=== PATIENT | female | born 1980 | race American Indian/Alaskan Native ===

== ENCOUNTER 2021-05-14 18:22 | Emergency (ER) | payer SELFPAY | END 2021-05-14 23:00 | LOC: ED 18:22 | DX: O46.90 Antepartum hemorrhage, unspecified, unspecified trimester (principal); Z53.21 Procedure and treatment not carried out due to patient leaving prior to being seen by health care provider ==

== ENCOUNTER 2021-05-15 16:35 | Emergency (ER) | payer SELFPAY ==
[2021-05-15 18:39] LABS: Basophils % (Auto) 0.2 % (0.0-1.8); Eosinophils # (Auto) 0.1 K/mm3 (0.0-0.4); Eosinophils % (Auto) 0.9 % (0.0-4.3); Hemoglobin 12.1 gm/dl (10.1-14.3); Lymphocytes # (Auto) 2.6 K/mm3 (1.2-5.4); Lymphocytes % (Auto) 30.3 % (13.4-35.0); Mean Corpuscular HGB Conc 31 % (30-34); Mean Corpuscular Volume 86 fl (79-97); Monocytes # (Auto) 0.4 K/mm3 (0.0-0.8); Monocytes % (Auto) 5.2 % (0.0-7.3); Platelet Count 413 K/mm3 (140-440); Red Blood Count 4.53 M/mm3 (3.65-5.03); Red Cell Distribution Width 15.1 % (13.2-15.2)
[2021-05-15 20:08] LABS: Bilirubin,Urine NEG (Negative); Blood,Urine LG (Negative); Color,Urine Red (Yellow); Mucus,Urine FEW /HPF; Urobilinogen,Urine < 2.0 mg/dL (<2.0)
[2021-05-15 20:10] LABS: RBC,Urine > 182.0 /HPF (0.0-6.0)
--- NOTE | 2021-05-15 22:52 | Emergency Department Report ---
HPI - General Chief Complaint: Vaginal Bleeding Time Seen by Provider: 05/15/21 22:38 - HPI HPI: MSE 5 The patient is a 41-year-old female present with a chief complaint of vaginal bleeding. The patient states she is approximately 10 weeks with an LMP 03/09/2021. Patient states she has not yet seen an [facility] or had an ultrasound for this . Patient states she developed vaginal spotting 6 days ago. The patient states she came to the ED yesterday but left before she was evaluated. The patient states she decided to give her self but rest when she woke up today she notes she is bleeding heavier. Patient denies passage of tissue but states she has passed small clots and she has gone through approximately 6 pads today. Patient admits to nausea but denies vomiting. Patient denies dysuria or fever ED Past Medical Hx - Past Medical History Hx Sickle Cell Disease: Yes (sickle cell trait) Additional medical history: anemia, sickle cell trait,BLOOD TRANSFUSION Feb 2014 - Surgical History Additional Surgical History: c section,D&C Feb - Family History Family history: no significant - Social History Smoking Status: Never Smoker Substance Use Type: None (Denies illicit drug), Alcohol (Occasional) - Medications Home Medications: Home Medications Medication Instructions Recorded Confirmed Last Taken Type HYDROcodone/APAP 5-325 [[place] 1 each PO Q6HR PRN #20 tablet 03/26/14 Unknown Rx 5/325] Ibuprofen [Motrin] 800 mg PO TID PRN #30 tablet 03/26/14 Unknown Rx Promethazine [Phenergan] 25 mg PO Q6H PRN #30 tablet 03/26/14 Unknown Rx Nitrofurantoin [place]/M-Cryst 100 mg PO Q12HR #14 capsule 05/15/21 Unknown Rx [Macrobid CAP] ED Review of Systems ROS: Stated complaint: POSS. MISCARRIAGE Other details as noted in HPI Constitutional: denies: fever Eyes: denies: eye pain ENT: denies: throat pain Respiratory: no symptoms reported Cardiovascular: denies: chest pain Endocrine: no symptoms reported Gastrointestinal: abdominal pain, nausea. denies: vomiting Genitourinary: abnormal menses. denies: dysuria Musculoskeletal: denies: back pain Neurological: denies: headache Physical Exam - Physical Exam Vital Signs: Vital Signs 05/15/21 17:47 Temperature 98 F Pulse Rate 85 Respiratory 20 Rate Blood Pressure 169/81 [Right] O2 Sat by Pulse 98 Oximetry Physical Exam: GENERAL: The patient is well-developed well-nourished female lying on stretcher not appearing to be in acute. [] HEENT: Normocephalic. Atraumatic. Extraocular motions are intact. Patient has moist mucous membranes. NECK: Supple. Trachea midline CHEST/LUNGS: Clear to auscultation. There is no respiratory distress noted. HEART/CARDIOVASCULAR: Regular. There is no tachycardia. There is no gallop rub or murmur. ABDOMEN: Abdomen is soft, nontender. Patient has normal bowel sounds. There is no abdominal distention. SKIN: There is no rash. There is no edema. There is no diaphoresis. NEURO: The patient is awake, alert, and oriented. The patient is cooperative. The patient has no focal neurologic deficits. The patient has normal speech. GCS MUSCULOSKELETAL: There is no evidence of acute injury. ED Course Vital Signs 05/15/21 17:47 Temperature 98 F Pulse Rate 85 Respiratory 20 Rate Blood Pressure 169/81 [Right] O2 Sat by Pulse 98 Oximetry ED Medical Decision Making - Lab Data Result diagrams: 05/15/21 18:05 - Radiology Data Radiology results: report reviewed (Pelvic ultrasound), image reviewed (Pelvic ultrasound) [facility] [address] [place] [address] Ultrasound Report Signed Patient: OLGA MACKEY MR#: [id number] : 1980 Acct:[id number] Age/Sex: 41 / F ADM Date: 05/15/21 Loc: ED Attending Dr: Ordering Physician: HUMBERTO GONZALEZ MD Date of Service: 05/15/21 Procedure(s): US OB <= 14 weeks fetus Accession Number(s): [id number] cc: HUMBERTO GONZALEZ MD OB Ultrasound HISTORY: Vaginal bleeding. TECHNIQUE: Grayscale and color imaging performed. COMPARISON: No recent relevant comparison exam FINDINGS: Uterus measures 11.7 x 4.6 x 6.7 cm with an intrauterine gestational sac. The mean sac diameter is 2.5 cm which corresponds with an EGA of 7 weeks and 4 days. No pole or yolk sac is identified. Both ovaries appear unremarkable. No pelvic free fluid. IMPRESSION: Empty gestational sac as outlined above. Otherwise nothing acute. Signer Name: Dhruv Rizo MD Signed: 05/15/2021 11:39 PM Workstation Name: [id number] Transcribed By: FABIO Dictated By: Dhruv Rizo MD Electronically Authenticated By: Dhruv Rizo MD Signed Date/Time: 05/15/212338 DD/ 37 TD/TT: Print Cancel - Differential Diagnosis Threatened , spontaneous , ectopic , inevitable ab Critical care attestation.: If time is entered above; I have spent that time in minutes in the direct care of this critically ill patient, excluding procedure time. ED Disposition Clinical Impression: Threatened , UTI (urinary tract infection) Disposition: HOME / SELF CARE / HOMELESS Is pt being admited?: No Does the pt Need Aspirin: No Condition: Stable Instructions: Threatened Miscarriage, Vaginal Bleeding During , First Trimester, Ujsm-ey-Rnes Additional Instructions: Return to the emergency department should you develop worsening symptoms, inability to tolerate food or liquids, high fever or any other concerns Prescriptions: Nitrofurantoin [place]/M-Cryst [Macrobid CAP] 100 mg PO Q12HR #14 capsule Referrals: [facility] [Provider Group] - 3-5 Days Time of Disposition: 23:51
--- NOTE | 2021-05-15 23:44 | Ultrasound Report ---
OB Ultrasound HISTORY: Vaginal bleeding. TECHNIQUE: Grayscale and color imaging performed. COMPARISON: No recent relevant comparison exam FINDINGS: Uterus measures 11.7 x 4.6 x 6.7 cm with an intrauterine gestational sac. The mean sac diam eter is 2.5 cm which corresponds with an EGA of 7 weeks and 4 days. No pole or yolk sac is iden tified. Both ovaries appear unremarkable. No pelvic free fluid. IMPRESSION: Empty gestational sac as outlined above. Otherwise nothing acute. Signer Name: Dhruv Rizo MD Signed: 05/15/2021 11:39 PM Workstation Name: [id number]
[2021-05-16 00:22] VITALS: BP 110/72
== END 2021-05-16 00:23 | disposition home or self-care (01) ==
LOC: ED 16:35
DX: O20.0 Threatened abortion (principal); O23.41 Unspecified infection of urinary tract in pregnancy, first trimester; N39.0 Urinary tract infection, site not specified; Z3A.10 10 weeks gestation of pregnancy
CPT/HCPCS: 36415; 76801; 81001; 84702; 85025; 86900; 86901; 87086; 99284

== ENCOUNTER 2021-05-20 12:09 | Emergency (ER) | payer SELFPAY ==
[2021-05-20] MEDS ORDERED: KETOROLAC 30 MG/1 ML INJ IV ONE (12:50)
[2021-05-20] MEDS ORDERED: ACETAMINOPHEN 500 MG TAB PO ONE (12:50)
--- NOTE | 2021-05-20 12:51 | Emergency Department Report ---
ED Female HPI - General Chief complaint: Vaginal Bleeding Stated complaint: VAGINAL BLEEDING Time Seen by Provider: 05/20/21 12:30 Source: patient, EMS Mode of arrival: Stretcher Limitations: No Limitations - History of Present Illness Initial comments: CC: miscarriage HPI: This is a 41 yo female with hx of anemia, sickle cell trait who presents with vaginal bleeding for 5 days. She is currently 9 weeks . [place]AL[place] 12/14/2021 Diagnosed with threatened miscarriage on this ED 05/15/2021. mild pelvic cramping none currently EMR Blood type O + MD Complaint: vaginal bleeding -: Gradual, days(s) (5 days) Severity: moderate Severity scale (0 -10): 1 Quality: cramping Consistency: intermittent Improves with: none Worsens with: none Are you Now?: Yes Associated Symptoms: vaginal bleeding - Related Data Sexually active: Yes : 8 Para: 4 A: 3 Previous Rx's Medication Instructions Recorded Last Taken Type HYDROcodone/APAP 5-325 [[place] 1 each PO Q6HR PRN #20 tablet 03/26/14 Unknown Rx 5/325] Ibuprofen [Motrin] 800 mg PO TID PRN #30 tablet 03/26/14 Unknown Rx Promethazine [Phenergan] 25 mg PO Q6H PRN #30 tablet 03/26/14 Unknown Rx Nitrofurantoin [place]/M-Cryst 100 mg PO Q12HR #14 capsule 05/15/21 Unknown Rx [Macrobid CAP] Ibuprofen [Motrin 800 MG tab] 800 mg PO Q8HR PRN #20 tablet 05/20/21 Unknown Rx Allergies Allergy/AdvReac Type Severity Reaction Status Date / Time No Known Allergies Allergy Verified 05/20/21 12:14 ED Review of Systems ROS: Stated complaint: VAGINAL BLEEDING Other details as noted in HPI Comment: All other systems reviewed and negative Constitutional: denies: chills, fever, malaise Respiratory: denies: cough, shortness of breath Gastrointestinal: denies: nausea, vomiting, diarrhea, constipation, hematemesis Genitourinary: other (mild pelvic pain). denies: urgency, dysuria, frequency, hematuria, discharge Skin: denies: rash, lesions Neurological: denies: headache, weakness ED Past Medical Hx - Past Medical History Previous Medical History?: Yes Hx Hypertension: No Hx Congestive Heart Failure: No Hx Diabetes: No Hx Deep Vein Thrombosis: No Hx Renal Disease: No Hx Sickle Cell Disease: Yes (sickle cell trait) Hx Seizures: No Hx Asthma: No Hx COPD: No Hx HIV: No Additional medical history: anemia, sickle cell trait,BLOOD TRANSFUSION Feb 2014 - Surgical History Past Surgical History?: Yes Additional Surgical History: c section,D&C Feb - Social History Smoking Status: Never Smoker Substance Use Type: Alcohol (Occasional) - Medications Home Medications: Home Medications Medication Instructions Recorded Confirmed Last Taken Type HYDROcodone/APAP 5-325 [[place] 1 each PO Q6HR PRN #20 tablet 03/26/14 Unknown Rx 5/325] Ibuprofen [Motrin] 800 mg PO TID PRN #30 tablet 03/26/14 Unknown Rx Promethazine [Phenergan] 25 mg PO Q6H PRN #30 tablet 03/26/14 Unknown Rx Nitrofurantoin [place]/M-Cryst 100 mg PO Q12HR #14 capsule 05/15/21 Unknown Rx [Macrobid CAP] Ibuprofen [Motrin 800 MG tab] 800 mg PO Q8HR PRN #20 tablet 05/20/21 Unknown Rx ED Physical Exam - General Limitations: No Limitations General appearance: alert, in no apparent distress - Head Head exam: Present: atraumatic, normocephalic - Eye Eye exam: Present: normal appearance - ENT ENT exam: Present: mucous membranes moist - Neck Neck exam: Present: normal inspection, full ROM - Respiratory Respiratory exam: Present: normal lung sounds bilaterally. Absent: respiratory distress, wheezes, rales, rhonchi - Cardiovascular Cardiovascular Exam: Present: regular rate, normal rhythm, normal heart sounds, other (hr 82 bpm on monitor). Absent: systolic murmur, diastolic murmur, rubs, gallop - GI/Abdominal GI/Abdominal exam: Present: soft, normal bowel sounds. Absent: distended, tenderness, guarding - External exam: Present: bleeding (large amount of POC 300 ml in volume). Absent: erythema, swelling, lesions, lacerations, ecchymosis - Extremities Exam Extremities exam: Present: normal inspection - Neurological Exam Neurological exam: Present: alert, oriented X3 - Psychiatric Psychiatric exam: Present: normal affect, normal mood - Skin Skin exam: Present: warm, dry, intact, normal color. Absent: rash ED Course Vital Signs 05/20/21 05/20/21 05/20/21 12:11 12:46 18:11 Temperature 98.3 F 97.8 F 98.0 F Pulse Rate 130 H 89 86 Respiratory 18 18 18 Rate Blood Pressure 146/94 116/76 117/72 [Left] O2 Sat by Pulse 100 99 99 Oximetry ED Medical Decision Making - Medical Decision Making Complete miscarriage with normalization of vital signs after pain medication. Repeat heart rate 85 bpm. With large amount of POC's expelled, I do not anticipate need for D&C. Ultrasound pending. Patient is symptom-free. Minimal bleeding at this time. Blood type O+ on May 15 according to electronic medical record. Anticipate discharge home. Prescribed ibuprofen. My colleague will follow-up ultrasound result. Critical care attestation.: If time is entered above; I have spent that time in minutes in the direct care of this critically ill patient, excluding procedure time. ED Disposition Clinical Impression: Miscarriage Disposition: HOME / SELF CARE / HOMELESS Is pt being admited?: No Does the pt Need Aspirin: No Condition: Stable Instructions: Miscarriage, Hgyv-ev-Jdak, Managing Loss Prescriptions: Ibuprofen [Motrin 800 MG tab] 800 mg PO Q8HR PRN #20 tablet PRN Reason: Pain , Severe (7-10) Referrals: PRIMARY CARE, [Primary Care Provider] - 3-5 Days
--- NOTE | 2021-05-20 15:42 | Ultrasound Report ---
EARLY OBSTETRICAL ULTRASOUND INDICATION: miscarriage COMPARISON: 05/15/2021 TECHNIQUE: Transabdominal and endovaginal FINDINGS: The intrauterine ovoid gestational sac is again seen measuring 2.7 cm in length correspondi ng to a gestational age of 7 weeks 5 days. On study 5 days ago, this was the same size. Again no sac contents are seen with no evidence of cardiac activity or pole and no yolk sac identified. On the transabdominal study ovaries show no abnormalities. Only the right ovary is seen by endovagina l examination. No free fluid is seen. IMPRESSION: Unchanged appearance of an intrauterine gestational sac without obvious contents. Finding s appear consistent with nonviable blighted ovum. Signer Name: Koko Pastrana MD Signed: 05/20/2021 3:37 PM Workstation Name: [id number]
--- NOTE | 2021-05-20 17:40 | Ultrasound Report ---
US OB <= 14 wk fetus add gest INDICATION / CLINICAL INFORMATION: miscarriage vaginal bleeding COMPARISON: 05/15/2021. Comparison was also made with concurrent transvaginal images. FINDINGS/IMPRESSION: Intrauterine ovoid gestational sac is again seen. No discrete pole or yolk sac is identified. T his is more optimally imaged on concurrent transvaginal examination. Please see separately dictated r eport for further details. Signer Name: Chetan Vitale MD Signed: 05/20/2021 5:35 PM Workstation Name: [id number]
[2021-05-20 18:12] VITALS: BP 117/72
== END 2021-05-20 18:11 | disposition home or self-care (01) ==
LOC: ED 12:09
DX: O03.9 Complete or unspecified spontaneous abortion without complication (principal); Z3A.09 9 weeks gestation of pregnancy
CPT/HCPCS: 76801; 76817; 96374; 99284; J1885; 76802

== ENCOUNTER 2021-06-01 16:29 | Emergency (ER) | payer SELFPAY ==
[2021-06-01 16:47] VITALS: BP 159/85
--- NOTE | 2021-06-01 17:18 | Emergency Department Report ---
ED Female HPI - General Chief complaint: Vaginal Bleeding Stated complaint: MISSCARRIAGE,LARGE CLOTS Time Seen by Provider: 06/01/21 16:48 Source: patient Mode of arrival: Ambulatory Limitations: No Limitations - History of Present Illness Initial comments: Chief complaint: "I am passing blood clots." HPI: This is a 41-year-old female with history of anemia, sickle cell trait who presents with 2-1/2 hours of bleeding with large clots. I evaluated this patient 12 days ago on May 20. Patient was diagnosed with incomplete miscarriage at that time. She was currently 9 weeks at that time. She has had light bleeding spotting for the 12 days since. Due to lack of insurance has been unable to follow-up with [facility]. She finally was able to obtain follow-up with [facility] which is scheduled for next Sunday. She denies any pain. The large size of the clots caused her concern. She denies pain. She denies dizziness. Patient's blood type according to test obtained on May 15 C is O+. Complaint: vaginal bleeding -: Gradual, hour(s) (2-1/2 hours of bleeding with clots since 2:30 PM) Severity: moderate Severity scale (0 -10): 0 Consistency: constant Improves with: none Worsens with: none Are you Now?: Yes (Recently diagnosed with incomplete miscarriage) Associated Symptoms: denies other symptoms - Related Data Previous Rx's Medication Instructions Recorded Last Taken Type HYDROcodone/APAP 5-325 [[place] 1 each PO Q6HR PRN #20 tablet 03/26/14 Unknown Rx 5/325] Ibuprofen [Motrin] 800 mg PO TID PRN #30 tablet 03/26/14 Unknown Rx Promethazine [Phenergan] 25 mg PO Q6H PRN #30 tablet 03/26/14 Unknown Rx Nitrofurantoin [place]/M-Cryst 100 mg PO Q12HR #14 capsule 05/15/21 Unknown Rx [Macrobid CAP] Ibuprofen [Motrin 800 MG tab] 800 mg PO Q8HR PRN #20 tablet 05/20/21 Unknown Rx Allergies Allergy/AdvReac Type Severity Reaction Status Date / Time No Known Allergies Allergy Verified 06/01/21 16:47 ED Review of Systems ROS: Stated complaint: MISSCARRIAGE,LARGE CLOTS Other details as noted in HPI Comment: All other systems reviewed and negative Constitutional: denies: chills, fever, malaise Respiratory: denies: cough, shortness of breath Cardiovascular: denies: chest pain Gastrointestinal: denies: abdominal pain, nausea, vomiting ED Past Medical Hx - Past Medical History Previous Medical History?: Yes Hx Hypertension: No Hx Congestive Heart Failure: No Hx Diabetes: No Hx Deep Vein Thrombosis: No Hx Renal Disease: No Hx Sickle Cell Disease: Yes (sickle cell trait) Hx Seizures: No Hx Asthma: No Hx COPD: No Hx HIV: No Additional medical history: anemia, sickle cell trait,BLOOD TRANSFUSION Feb 2014 - Surgical History Past Surgical History?: Yes Additional Surgical History: c section,D&C Feb - Social History Smoking Status: Never Smoker Substance Use Type: Alcohol (Occasional) - Medications Home Medications: Home Medications Medication Instructions Recorded Confirmed Last Taken Type HYDROcodone/APAP 5-325 [[place] 1 each PO Q6HR PRN #20 tablet 03/26/14 Unknown Rx 5/325] Ibuprofen [Motrin] 800 mg PO TID PRN #30 tablet 03/26/14 Unknown Rx Promethazine [Phenergan] 25 mg PO Q6H PRN #30 tablet 03/26/14 Unknown Rx Nitrofurantoin [place]/M-Cryst 100 mg PO Q12HR #14 capsule 05/15/21 Unknown Rx [Macrobid CAP] Ibuprofen [Motrin 800 MG tab] 800 mg PO Q8HR PRN #20 tablet 05/20/21 Unknown Rx ED Physical Exam - General Limitations: No Limitations General appearance: alert, in no apparent distress, other (well-appearing, no acute distress, steady normal gait) - Head Head exam: Present: atraumatic, normocephalic - Eye Eye exam: Present: normal appearance - ENT ENT exam: Present: mucous membranes moist - Neck Neck exam: Present: normal inspection - Respiratory Respiratory exam: Present: normal lung sounds bilaterally. Absent: respiratory distress, wheezes, rales, rhonchi - Cardiovascular Cardiovascular Exam: Present: regular rate, normal rhythm. Absent: systolic murmur, diastolic murmur, rubs, gallop - GI/Abdominal GI/Abdominal exam: Present: soft, normal bowel sounds. Absent: distended, tenderness, rebound - Extremities Exam Extremities exam: Present: normal inspection - Neurological Exam Neurological exam: Present: alert, oriented X3 - Psychiatric Psychiatric exam: Present: normal affect, normal mood - Skin Skin exam: Present: warm, dry, intact, normal color. Absent: rash ED Course Vital Signs 06/01/21 16:46 Temperature 98.6 F Pulse Rate 117 H Respiratory 14 Rate Blood Pressure 159/85 [Left] O2 Sat by Pulse 100 Oximetry ED Medical Decision Making - Lab Data Result diagrams: 06/01/21 17:32 Laboratory Results - last 24 hr 06/01/21 06/01/21 17:32 17:32 WBC 7.2 RBC 3.07 L Hgb 8.6 L Hct 26.1 L MCV 85 MCH 28 MCHC 33 RDW 14.5 Plt Count 398 Lymph % (Auto) 30.6 [place] % (Auto) 7.4 H Eos % (Auto) 1.7 Baso % (Auto) 0.4 Lymph # (Auto) 2.2 [place] # (Auto) 0.5 Eos # (Auto) 0.1 Baso # (Auto) 0.0 Seg Neutrophils % 59.9 Seg Neutrophils # 4.3 HCG, Quant 3175 H - Radiology Data Radiology results: report reviewed Patient Name: OLGA MACKEY Gender: Female Date of : 1980 Referring Provider: MARLIN PRABHAKAR Organization: [facility] Accession Number: [id number] Requested Date: June 01, 2021 17:12 Report Status: Final Requested Procedure: 1 Procedure Description: US OB transvaginal Modality: US Findings Reporting MD: Ulises Calderon Dictation Time: June 01, 2021 18:38 Medical Office Secretary: Not available [employer] Date: ULTRASOUND PELVIS INDICATION: Miscarriage. TECHNIQUE: Transabdominal and Transvaginal. Duplex Color Doppler used: Yes. COMPARISON: None available FINDINGS: Uterus: Present. Size: 9.9 x 5.8 x 6 cm. Endometrial complex: Normal measuring 1.5 cm. Cystic structure at the level of the cervix measuring 3.3 mm. No pole or yolk sac is identified. Mass lesions: None. Additional findings: None. Right Ovary -- Normal. Blood flow: Normal. Cyst or mass: None. Left Ovary--nonvisualized. Urinary Bladder: Normal. Free Fluid: None. Additional Findings: None. IMPRESSION: 1. Thickened endometrial stripe with possible gestational sac at the lower uterine segment. No pole or yolk sac. 2. Right ovary unremarkable. Left ovary nonvisualized. 3. No adnexal abnormality is identified. - Medical Decision Making Incomplete progressing miscarriage: hCG decreased from 17, 6442 3,175. Endometrial stripe thickened. Patient given reassurance and education. According to EMR blood type O+. Critical care attestation.: If time is entered above; I have spent that time in minutes in the direct care of this critically ill patient, excluding procedure time. ED Disposition Clinical Impression: Incomplete miscarriage with blood clot Disposition: HOME / SELF CARE / HOMELESS Is pt being admited?: No Does the pt Need Aspirin: No Condition: Stable Referrals: ZINA BARRETT MD [Staff Physician] - 3-5 Days
[2021-06-01 17:59] LABS: Basophils % (Auto) 0.4 % (0.0-1.8); Eosinophils # (Auto) 0.1 K/mm3 (0.0-0.4); Eosinophils % (Auto) 1.7 % (0.0-4.3); Hematocrit 26.1 % (30.3-42.9); Hemoglobin 8.6 gm/dl (10.1-14.3); Lymphocytes # (Auto) 2.2 K/mm3 (1.2-5.4); Lymphocytes % (Auto) 30.6 % (13.4-35.0); Mean Corpuscular HGB Conc 33 % (30-34); Mean Corpuscular Volume 85 fl (79-97); Monocytes # (Auto) 0.5 K/mm3 (0.0-0.8); Monocytes % (Auto) 7.4 % (0.0-7.3); Platelet Count 398 K/mm3 (140-440); Red Blood Count 3.07 M/mm3 (3.65-5.03); Red Cell Distribution Width 14.5 % (13.2-15.2)
--- NOTE | 2021-06-01 19:43 | Ultrasound Report ---
ULTRASOUND PELVIS INDICATION: Miscarriage. TECHNIQUE: Transabdominal and Transvaginal. Duplex Color Doppler used: Yes. COMPARISON: None available FINDINGS: Uterus: Present. Size: 9.9 x 5.8 x 6 cm. Endometrial complex: Normal measuring 1.5 cm. Cystic structure at the level of the cervix measuring 3 .3 mm. No pole or yolk sac is identified. Mass lesions: None. Additional findings: None. Right Ovary -- Normal. Blood flow: Normal. Cyst or mass: None. Left Ovary--nonvisualized. Urinary Bladder: Normal. Free Fluid: None. Additional Findings: None. IMPRESSION: 1. Thickened endometrial stripe with possible gestational sac at the lower uterine segment. No pole or yolk sac. 2. Right ovary unremarkable. Left ovary nonvisualized. 3. No adnexal abnormality is identified. Signer Name: Ulises Calderon MD Signed: 06/01/2021 7:38 PM Workstation Name: [id number]
== END 2021-06-01 20:54 | disposition home or self-care (01) ==
LOC: ED 16:29
DX: O03.4 Incomplete spontaneous abortion without complication (principal)
CPT/HCPCS: 36415; 76817; 84702; 85025; 99284